=== PATIENT | male | born 1970 | race Caucasian/White ===

== ENCOUNTER 2020-05-15 13:38 | Emergency (ER) | payer BC, SELFPAY ==
[2020-05-15 13:40] VITALS: BP 123/87; PULSE 75; RESP 20; TEMP 36.7; O2SAT 98; BMI 24.3
--- NOTE | 2020-05-15 13:52 | HMH.EDUTC ---
[facility] [place] Clinical Impression: Right knee pain Qualifiers: Chronicity: acute Qualified Code(s): M25.561 - Pain in right knee Disposition: Home, Self-Care Condition on Discharge: Good Instructions: DI for Knee Pain Additional Instructions: Drink plenty of fluids. Don't start the oral steroids (medrol dose pack) until tomorrow. Rest and elevate your knee as much time as possible. Follow up with your regular doctor. I put in a referral to orthopedics (Dr. Wei). If you are not getting better you should follow up with them. Their office number will be on this chart. GO TO THE ER FOR ANY WORSENING SYMPTOMS Prescriptions: methylPREDNISolone [Medrol] 4 mg PO DIRECTED 6 Days #21 [email or web address] Transmission Status: Received by [id number] Referrals: Evangelist Lee [Primary Care Provider] - Lane Wei MD [Staff Physician] - Time of Disposition: 14:57 Medical Decision Making - Medical Records Medical records reviewed: No: I reviewed the patient's medical records. - Franco Inquiry Pt receiving controlled substance: No Vital Signs: 05/15/20 13:40 05/15/20 14:41 Temperature 98.1 F 98.1 F Temperature Source Oral Pulse Rate 75 Pulse Rate [Left Brachial] 75 Respiratory Rate 20 20 Blood Pressure 123/87 Blood Pressure [Left Arm] 123/87 Blood Pressure Mean [Left Arm] 99 Blood Pressure Source [Left Arm] Automatic Cuff Blood Pressure Position [Left Arm] Sitting 02 Sat by Pulse Oximetry 98 Oxygen Delivery Method Room Air Orders (Tests/Meds): ED MEDICATIONS Discontinued Medications Generic Name Dose Route Start Last Admin Trade Name Riteshq PRN Reason Stop Dose Admin Methylprednisolone Sodium Succinate 125 mg 05/15/20 14:36 05/15/20 14:39 Methylprednisolone Sod Succ 125mg Vial IM 05/15/20 14:37 125 mg ONCE ONE Administration - Radiology Data #1 Image(s): Knee Image Reviewed: Yes I reviewed the patient's radiology image, Yes I have reviewed radiologist's interpretation Preliminary Findings: No Fracture Seen PROCEDURE: XR KNEE RT 3V CLINICAL INDICATION: SWELLING Pain and swelling COMPARISON: CR [id number] XR knee LT 3V from 10/06/2018 FINDINGS: There are mild osteoarthritic changes involving all 3 compartments. There is a small suprapatellar effusion. Other findings:None. IMPRESSION: Mild osteoarthritis Dictated by: Naman Morgan MD 05/15/2020 14:51 Naman Morgan MD in [place] 05/15/2020 14:51 [facility] [place] - General Stated complaint: right knee swollen and pain Time Seen by Provider: 05/15/20 13:52 Mode of Arrival: Ambulatory Source of Information: Patient Limitations: No Limitations Description of Symptoms (Recalled from Triage Doc. by RN): PATIENT C/O RIGHT KNEE REDNESS AND SWELLING X 2 DAYS HEENT Symptoms (Recalled from RN notes): No Resp Symptoms (Recalled from RN notes): No Skin Symptoms (Recalled from RN notes): No MS Symptoms (Recalled from RN notes): Yes Functional Status (Recalled from RN notes): WNL - History of Present Illness Provider Complaint: He states that he has had right knee pain for the past 2 days. He denies any known injury. He does have a history of gout, but he states that this does not feel like his normal gout symptoms. - Related Data Home Medications Medication Instructions Recorded Confirmed Colchicine 0.6 mg PO DAILY PRN 01/13/19 01/13/19 Ergocalciferol (Vitamin D2) 2,000 unit PO DAILY 01/13/19 01/13/19 [Vitamin D] Ezetimibe 10 mg PO DAILY 01/13/19 01/13/19 Indomethacin 50 mg PO BID PRN 01/13/19 01/13/19 allopurinoL [Allopurinol 300mg 300 mg PO DAILY 01/13/19 01/13/19 tablet] Previous Rx's Medication Instructions Recorded predniSONE [Prednisone 20mg 20 mg PO BID 5 Days #10 tab 01/13/19 Tab] methylPREDNISolone [Medrol] 4 mg PO DIRECTED 6 Days #21 05/15/20 [email or web address] Allergies Allergy/AdvReac Type Severity Reaction Status Date / Time No Known
--- NOTE | 2020-05-15 13:55 | XR_ITS ---
PROCEDURE: XR KNEE RT 3V CLINICAL INDICATION: SWELLING Pain and swelling COMPARISON: CR [id number] XR knee LT 3V from 10/06/2018 FINDINGS: There are mild osteoarthritic changes involving all 3 compartments. There is a small suprapatellar effusion. Other findings:None. IMPRESSION: Mild osteoarthritis Dictated by: Naman Morgan MD 05/15/2020 14:51 Naman Morgan MD in [place] 05/15/2020 14:51
[2020-05-15 14:41] VITALS: BP 123/87; PULSE 75; RESP 20; TEMP 36.7; O2SAT 98
== END 2020-05-15 13:55 | disposition home or self-care (01) ==
PROVIDERS: Emergency Provider Nurse Practitioner Family; PCP Pediatrics
DX: M25.561 Pain in right knee (principal)
CPT/HCPCS: 73562; 96372; 99202